=== PATIENT | female | born 1985 | race Caucasian/White ===

== ENCOUNTER → 2023-05-26 08:54 | Outpatient (CLI) | payer BC, SELFPAY ==
[2023-05-26 20:15] LABS: Add Manual Diff / Slide Review NO; Basophils Absolute Auto 0 /uL (0-100); Basophils Percent Auto 0.4 % (0-2); Eosinophils Absolute Auto 100 /uL (0-450); Eosinophils Percent Auto 1.9 % (2-4); Hematocrit 40.4 % (36-46); Hemoglobin 13.7 g/dL (12.0-16.0); Lymphocytes Absolute Auto 1900 /uL (1100-4500); Lymphocytes Percent Auto 27.7 % (25-40); Mean Corpuscular HGB Conc 33.9 % (30-36); Mean Corpuscular Volume 91.5 fL (80-100); Monocytes Absolute Auto 500 /uL (0-900); Neutrophils Absolute Auto 4200 /uL (1500-7000); Platelet Count 229 X10^3/uL (150-400); Red Blood Cell Count 4.42 X10^6/uL (4.0-5.2); Red Cell Distribution Width 12.6 % (11.6-14.8); White Blood Cell Count 6.7 X10^3/uL (4.5-11.0)
[2023-05-26 20:38] LABS: Alanine Aminotransferase 22 IU/L (<35); Albumin Globulin Ratio 1.3 (1.0-2.8); Alkaline Phosphatase 40 U/L (38-126); Aspartate Aminotransferase 26 IU/L (14-36); BUN Creatinine Ratio 20.8 (6-22); Bilirubin Total 0.6 mg/dL (0.2-1.3); Blood Urea Nitrogen 11 mg/dL (7-17); Calcium 9.2 mg/dL (8.4-10.2); Carbon Dioxide 24 mmol/L (22-32); Chloride 102 mmol/L (98-107); Estimated Glomerular Filt Rate > 60 mL/min (>60); Glucose 93 mg/dL (70-100); Sodium 135 mmol/L (137-145)
[2023-05-26 20:39] LABS: HEMOLYSIS 59 (0-50); Potassium 4.8 mmol/L (3.4-5.1)
[2023-05-26 21:06] LABS: TSH w/ Reflex to FT4 2.28 uIU/mL (0.47-4.68)
== END ==
PROVIDERS: PCP Physician Assistant; Visit Provider Family Medicine
DX: R00.0 Tachycardia, unspecified (principal)
CPT/HCPCS: 80053; 84443; 85025

== ENCOUNTER 2024-11-27 14:20 | Emergency (ER) | payer BC, SELFPAY ==
[2024-11-27] VITALS (8 sets, daily range): BP systolic 94–115; BP diastolic 59–71; PULSE 77–90; RESP 16–22; TEMP 36.8; O2SAT 96–98; BMI 27.3
--- NOTE | 2024-11-27 14:33 | DI.RAD.S_ITS ---
PROCEDURE: XR CHEST 1V INDICATIONS: chest pain TECHNIQUE: One view of the chest was acquired. COMPARISON: None. FINDINGS: Surgical changes and devices: Right axillary clips. Lungs and pleura: Lungs are clear. No pleural effusions or pneumothorax. Mediastinum: Mediastinal contours appear normal. Heart size is normal. Bones and chest wall: No suspicious bony lesions. Overlying soft tissues appear unremarkable. IMPRESSION: No acute pulmonary process. Dictated by: Leah Law M.D. on 11/27/2024 at 14:57 Approved by: Leah Law M.D. on 11/27/2024 at 14:57
--- NOTE | 2024-11-27 14:33 | EKG_ITS ---
[address] [address] Test Date: 2024-11-27 Pat Name: Ankita Currie Department: Room: Gender: Female [employer]co & President: KYLER : 1985 Requested By: Order Number: [id number] Reading MD: Natalio Ibarra MD Measurements Intervals [place] Rate: 85 P: 43 FL: 130 QRS: 60 QRSD: 78 T: 51 QT: 378 QTc: 449 Interpretive Statements Normal sinus rhythm Electronically Signed On 11-27-2024 14:51:00 PST by Natalio Ibarra MD
[2024-11-27 15:19] LABS: Add Manual Diff / Slide Review NO; Basophils Absolute Auto 0 /uL (0-100); Basophils Percent Auto 0.6 % (0-2); Eosinophils Absolute Auto 0 /uL (0-450); Hematocrit 38.7 % (36-46); Hemoglobin 13.3 g/dL (12.0-16.0); Lymphocytes Absolute Auto 900 /uL (1100-4500); Lymphocytes Percent Auto 23.7 % (25-40); Mean Corpuscular HGB Conc 34.3 % (30-36); Mean Corpuscular Hemoglobin 31.7 PG (26-34); Mean Corpuscular Volume 92.3 fL (80-100); Monocytes Absolute Auto 400 /uL (0-900); Monocytes Percent Auto 10.4 % (3-14); Neutrophils Absolute Auto 2600 /uL (1500-7000); Neutrophils Percent Auto 64.3 % (50-75); Platelet Count 231 X10^3/uL (150-400); Red Blood Cell Count 4.19 X10^6/uL (4.0-5.2); Red Cell Distribution Width 12.8 % (11.6-14.8)
[2024-11-27 15:26] LABS: INR 1.1 (0.9-1.3); Prothrombin Time 12.4 SECONDS (9.4-12.5)
[2024-11-27] MEDS: ASPIRIN 81 MG CHEW TAB 324 MG PO (15:26)
[2024-11-27 15:28] LABS: PTT Partial Thromboplastin Tim 38 SECONDS (25.1-36.5)
[2024-11-27 15:37] LABS: Alanine Aminotransferase 21 IU/L (<35); Albumin 4.1 g/dL (3.5-5.0); Albumin Globulin Ratio 1.8 (1.0-2.8); Alkaline Phosphatase 37 U/L (38-126); Aspartate Aminotransferase 26 IU/L (14-36); BUN Creatinine Ratio 21.1 (6-22); Bilirubin Total 0.3 mg/dL (0.2-1.3); Blood Urea Nitrogen 15 mg/dL (7-17); Calcium 8.8 mg/dL (8.4-10.2); Carbon Dioxide 23 mmol/L (22-32); Chloride 106 mmol/L (98-107); Creatine Kinase 76 U/L (30-135); Estimated Glomerular Filt Rate > 60 mL/min (>60); Globulin 2.3 g/dL (1.7-4.1); Glucose 128 mg/dL (70-100); HEMOLYSIS < 15 (0-50); Lipase 165 U/L (23-300); Potassium 3.7 mmol/L (3.4-5.1); Sodium 137 mmol/L (137-145); Total Protein 6.4 g/dL (6.3-8.2)
[2024-11-27 15:49] LABS: NT-proBNP (BNP-Adult 18+) 32 pg/mL (<125); Troponin I < 0.012 ng/mL (0.01-0.034)
--- NOTE | 2024-11-27 16:14 | PC.NURSE ---
Pt reports 2/10 substernal, chest pain that last seconds. Pt denies chest pain when this RN checks on her. Provider Emil made aware.
--- NOTE | 2024-11-27 17:00 | EKG_ITS ---
[address] [address] Test Date: 2024-11-27 Pat Name: Ankita Currie Department: Room: Gender: Female [employer] Paster: KYLER : 1985 Requested By: Order Number: [id number] Reading MD: Natalio Ibarra MD Measurements Intervals [place] Rate: 76 P: 58 OR: 170 QRS: 59 QRSD: 84 T: 43 QT: 388 QTc: 436 Interpretive Statements Normal sinus rhythm Electronically Signed On 11-28-2024 7:47:51 PST by Natalio Ibarra MD
[2024-11-27 18:03] LABS: Troponin I < 0.012 ng/mL (0.01-0.034)
--- NOTE | 2024-11-28 13:59 | ED.ARRPALP ---
HPI - Arrhythmia/Palpitations <Negrito Paz PA-C - Last Filed: 11/28/24 14:14> General Chief Complaint: Arrhythmia/Palpitations Stated Complaint: Sent from [facility] irregular heart beat Time Seen by Provider: 11/27/24 17:18 History of Present Illness HPI narrative: 39-year-old female with past medical history breast cancer, depression presents to the ED with 1 day of an abnormal sensation in the left chest. Patient describes it asfeels like a bubble in the chest. Patient states that this sensation lasted for about a 1/2 hour, after which it spontaneously resolved. In the ED, patient is symptom free. Patient denies fever, chills, shortness of breath, nausea, vomiting, lightheadedness, dizziness, syncope. Related Data Home Medications Medication Instructions Recorded Confirmed toremifene 60 mg tablet 60 mg PO DAILY 11/07/24 11/07/24 Previous Rx's Medication Instructions Recorded bupropion HCl 300 mg 24 hr tablet, See Rx Instructions .Route 03/06/24 extended release .COMPLEX #90 tabs naltrexone 50 mg tablet 50 mg PO DAILY #90 tabs 03/27/24 lorazepam 1 mg tablet 2 mg (2 x 1 mg) PO ONCE PRN 06/05/24 preprocedure/MRI. Claustrophobia #2 tabs Allergies Allergy/AdvReac Type Severity Reaction Status Date / Time No Known Drug Allergies Allergy Verified 11/07/24 11:26 Review of Systems <Negrito Paz PA-C - Last Filed: 11/28/24 14:14> Constitutional Constitutional: Denies chills, Denies fatigue, Denies fever(s), Denies frequent falls, Denies lethargy and Denies weakness Eyes Eyes: Denies change in vision, Denies eye discharge, Denies irritation and Denies loss of vision ENT Ears, Nose, Mouth, and Throat: Denies change in voice, Denies dizziness, Denies neck pain, Denies sore throat and Denies throat swelling Cardiovascular Cardiovascular: Denies chest pain, Denies irregular heart rhythm, Denies lightheadedness, Denies palpitations, Denies dyspnea, Denies dyspnea on exertion and Denies orthopnea Comments: Abnormal sensation in the left chest, according to patient feels like a bubble in the chest Respiratory Respiratory: Denies cough, Denies dyspnea, Denies dyspnea on exertion and Denies wheezing Gastrointestinal Gastrointestinal: Denies abdominal pain, Denies change in bowel habits, Denies diarrhea, Denies nausea and Denies vomiting Musculoskeletal Musculoskeletal: Denies neck pain and Denies numbness Integumentary/Breasts Skin/Breast: Denies pruritus, Denies erythema, Denies rash and Denies wounds Neurologic Neurologic: Denies behavioral changes, Denies confusion, Denies dizziness, Denies frequent falls, Denies loss of vision, Denies numbness and Denies weakness Psychiatric Psychiatric: Denies anxiety, Denies behavioral changes, Denies confusion, Denies depression, Denies homicidal ideation and Denies suicidal ideation Endocrine Endocrine: Denies fatigue, Denies flushing and Denies palpitations Hematologic/Lymphatic Hematologic/Lymphatic: Denies easy bruising Allergic/Immunologic Allergic/Immunologic: Denies urticaria, Denies throat swelling and Denies wheezing Patient History <Negrito Paz PA-C - Last Filed: 11/28/24 14:14> Medical History Alcohol use Presence of IUD Amenorrhea, secondary Major depression Social History Smoking Status: Never smoker additional social history: decreased ETOH and cannabis use [facility] 04/2023 Smoking Status: Never smoker Exam <Negrito Paz PA-C - Last Filed: 11/28/24 14:14> Narrative Exam Narrative: Const General:?cooperative, healthy appearing and comfortable [facility] Head:?normal to inspection Ears:?hearing grossly normal bilaterally Nose:?external nose normal Face and sinus:?normal facial exam and sinuses nontender Mouth:?oral mucosae normal Throat:?posterior oropharynx normal Eyes General:?appearance normal, both eyes and all related structures Neck Neck:?normal visual inspection and no lymphadenopathy noted Resp Effort & Inspection:?normal respiratory effort Auscultation:?clear to auscultation bilaterally Cardio Rate:?regular rate Rhythm:?regular rhythm Neuro General:?patient alert, patient awake and patient oriented x3 Initial Vital Signs Initial Vital Signs: Vital Signs Temperature 98.2 F 11/27/24 14:29 Pulse Rate 90 11/27/24 14:29 Respiratory Rate 18 11/27/24 14:29 Blood Pressure 115/63 11/27/24 14:29 Pulse Oximetry 98 11/27/24 14:29 Oxygen Delivery Method Room Air 11/27/24 14:29 <DO Vinayak Michelle Last Filed: 11/30/24 09:38> Initial Vital Signs Initial Vital Signs: Vital Signs Temperature 98.2 F 11/27/24 14:29 Pulse Rate 90 11/27/24 14:29 Respiratory Rate 18 11/27/24 14:29 Blood Pressure 115/63 11/27/24 14:29 Pulse Oximetry 98 11/27/24 14:29 Oxygen Delivery Method Room Air 11/27/24 14:29 Course <Negrito Paz PA-C - Last Filed: 11/28/24 14:14> Orders Ordered: Discontinued Medications Aspirin (Aspirin 81 Mg Chew Tab) 324 mg PO NOW ONE Stop: 11/27/24 14:34 Last Admin: 11/27/24 15:26 Dose: 324 mg Documented By: <Olga Stein DO - Last Filed: 11/30/24 09:38> Orders Ordered: Discontinued Medications Aspirin (Aspirin 81 Mg Chew Tab) 324 mg PO NOW ONE Stop: 11/27/24 14:34 Last Admin: 11/27/24 15:26 Dose: 324 mg Documented By: MDM - Arrhythmia/Palpitations <ANGELA Elizabeth Last Filed: 11/28/24 14:14> Lab Data 11/27/24 14:57 11/27/24 14:57 Labs: Lab Results 11/27/24 11/27/24 Range/Units 14:57 17:30 WBC 4.0 L (4.5-11.0) X10^3/uL RBC 4.19 (4.0-5.2) X10^6/uL Hgb 13.3 (12.0-16.0) g/dL Hct 38.7 (36-46) % MCV 92.3 (80-100) fL MCH 31.7 (26-34) PG MCHC 34.3 (30-36) % RDW 12.8 (11.6-14.8) % Plt Count 231 (150-400) X10^3/uL Neut % (Auto) 64.3 (50-75) % Lymph % (Auto) 23.7 L (25-40) % Cocke % (Auto) 10.4 (3-14) % Eos % (Auto) 1.0 L (2-4) % Baso % (Auto) 0.6 (0-2) % Neut # (Auto) 2600 (6451-7174) /uL Lymph # (Auto) 900 L (6818-3312) /uL Cocke # (Auto) 400 (0-900) /uL Eos # (Auto) 0 (0-450) /uL Baso # (Auto) 0 (0-100) /uL PT 12.4 (9.4-12.5) SECONDS INR 1.1 (0.9-1.3) APTT 38 H (25.1-36.5) SECONDS Sodium 137 (137-145) mmol/L Potassium 3.7 (3.4-5.1) mmol/L Chloride 106 (98-107) mmol/L Carbon Dioxide 23 (22-32) mmol/L BUN 15 (7-17) mg/dL Creatinine 0.71 (0.52-1.04) mg/dL Estimated GFR > 60 (>60) mL/min BUN/Creatinine Ratio 21.1 (6-22) Glucose 128 H (70-100) mg/dL Calcium 8.8 (8.4-10.2) mg/dL Magnesium 2.0 (1.6-2.3) mg/dL Total Bilirubin 0.3 (0.2-1.3) mg/dL AST 26 (14-36) IU/L ALT 21 (<35) IU/L Alkaline Phosphatase 37 L (38-126) U/L Total Creatine Kinase 76 (30-135) U/L Troponin I < 0.012 < 0.012 (0.01-0.034) ng/mL NT-Pro-B Natriuret Pep 32 (<125) pg/mL Total Protein 6.4 (6.3-8.2) g/dL Albumin 4.1 (3.5-5.0) g/dL Globulin 2.3 (1.7-4.1) g/dL Albumin/Globulin Ratio 1.8 (1.0-2.8) Lipase 165 (23-300) U/L MDM Narrative Medical decision making narrative: 39-year-old female with past medical history breast cancer, depression presents to the ED with 1 day of an abnormal sensation in the left chest. ACS workup obtained. EKG is normal sinus rhythm with no acute ST-T changes. No axis deviation. Chest x-ray with no acute findings. Labs within normal limits. BNP within normal limits. Troponin x2 within normal limits. Repeat x-ray also normal sinus rhythm, without any acute ST-T changes or axis deviation. Patient continues to be symptom-free in the ED. discussed findings with patient that the cardiopulmonary workup was without acute findings. Unclear etiology of patient's pain. Recommend follow-up with PCP as soon as possible. ED return precautions were discussed with patient. Patient verbalized understanding. Medical records reviewed: Yes <Olga Stein DO - Last Filed: 11/30/24 09:38> Lab Data Labs: Lab Results 11/27/24 11/27/24 Range/Units 14:57 17:30 WBC 4.0 L (4.5-11.0) X10^3/uL RBC 4.19 (4.0-5.2) X10^6/uL Hgb 13.3 (12.0-16.0) g/dL Hct 38.7 (36-46) % MCV 92.3 (80-100) fL MCH 31.7 (26-34) PG MCHC 34.3 (30-36) % RDW 12.8 (11.6-14.8) % Plt Count 231 (150-400) X10^3/uL Neut % (Auto) 64.3 (50-75) % Lymph % (Auto) 23.7 L (25-40) % Cocke % (Auto) 10.4 (3-14) % Eos % (Auto) 1.0 L (2-4) % Baso % (Auto) 0.6 (0-2) % Neut # (Auto) 2600 (4693-8229) /uL Lymph # (Auto) 900 L (8647-4794) /uL Cocke # (Auto) 400 (0-900) /uL Eos # (Auto) 0 (0-450) /uL Baso # (Auto) 0 (0-100) /uL PT 12.4 (9.4-12.5) SECONDS INR 1.1 (0.9-1.3) APTT 38 H (25.1-36.5) SECONDS Sodium 137 (137-145) mmol/L Potassium 3.7 (3.4-5.1) mmol/L Chloride 106 (98-107) mmol/L Carbon Dioxide 23 (22-32) mmol/L BUN 15 (7-17) mg/dL Creatinine 0.71 (0.52-1.04) mg/dL Estimated GFR > 60 (>60) mL/min BUN/Creatinine Ratio 21.1 (6-22) Glucose 128 H (70-100) mg/dL Calcium 8.8 (8.4-10.2) mg/dL Magnesium 2.0 (1.6-2.3) mg/dL Total Bilirubin 0.3 (0.2-1.3) mg/dL AST 26 (14-36) IU/L ALT 21 (<35) IU/L Alkaline Phosphatase 37 L (38-126) U/L Total Creatine Kinase 76 (30-135) U/L Troponin I < 0.012 < 0.012 (0.01-0.034) ng/mL NT-Pro-B Natriuret Pep 32 (<125) pg/mL Total Protein 6.4 (6.3-8.2) g/dL Albumin 4.1 (3.5-5.0) g/dL Globulin 2.3 (1.7-4.1) g/dL Albumin/Globulin Ratio 1.8 (1.0-2.8) Lipase 165 (23-300) U/L ECG Data Attestation: I personally reviewed and interpreted this ECG as follows: Prior ECG tracings: not available for review Interpretation: Sinus rhythm rate 85 ME 130 QRS is 78 QTC [address] changes appreciated. No priors for comparison. EKG shows sinus rhythm 76, ME 170 QRS 84 QTC of 436, no acute ST changes. Discharge Plan Departure Patient Disposition: Home Clinical Impression: Palpitations Instructions: DI for Palpitations Activity Restrictions/Additional Instructions: You were evaluated in the ED today for chest discomfort. Your labs, EKG and chest x-ray were normal. It is unclear why you were experiencing the discomfort. It is also possible that acid reflux can cause such symptoms as well. Please monitor your symptoms, return to the ED if you have worsening symptoms. Please follow-up with your PCP as soon as possible. Prescriptions: No Action naltrexone 50 mg tablet 50 mg PO DAILY Qty: 90 3RF lorazepam 1 mg tablet 2 mg PO ONCE PRN (Reason: preprocedure/MRI. Claustrophobia) Qty: 2 0RF Rx Instructions: Take 1 to 2 hours prior to MRI. Do NOT drive while taking this medication. bupropion HCl 300 mg tablet extended release 24 hr See Rx Instructions .ROUTE .COMPLEX Qty: 90 3RF Dose Instruction: TAKE ONE TABLET BY MOUTH EVERY MORNING Rx Instructions: TAKE ONE TABLET BY MOUTH EVERY MORNING toremifene 60 mg tablet 60 mg PO DAILY Referrals: Sita Rock MD [Primary Care Provider] - Stand Alone Forms: Patient Portal/API/Survey ED Sign-out <Olga Stein DO - Last Filed: 11/30/24 09:38> Cosign ED Attending Cosignature Attestation: I was immediately available in the department for consultation.
== END 2024-11-27 18:16 | disposition home or self-care (01) ==
PROVIDERS: Emergency Medicine; Emergency Provider Student in an Organized Health Care Education/Training Program; PCP Family Medicine
DX: R00.2 Palpitations (principal)
CPT/HCPCS: 36415; 71045; 80053; 82550; 83690; 83735; 83880; 84484; 85025; 85610; 85730; 93005; 93010; 99283; 99284

== ENCOUNTER → 2024-12-07 11:35 | Outpatient (CLI) | payer OTHER, SELFPAY ==
[2024-12-07 21:22] LABS: Thyroid Stimulating Hormone 1.94 uIU/mL (0.47-4.68)
== END ==
PROVIDERS: PCP Family Medicine; Referring Provider Family Medicine; Visit Provider Family Medicine
DX: R00.2 Palpitations (principal)
CPT/HCPCS: 84443